=== PATIENT | male | born 1965 | race Two or more races ===

== ENCOUNTER 2016-12-26 09:34 | Day surgery (SDC) | payer BC ==
[2016-12-24 14:59] VITALS: BMI 45.6
[~2016-12-26 09:34] MED LIST: LACTATED RINGERS 1,000 ML IV SCH; LIDOCAINE 1% 20 ML VIAL (10MG/ML) FOR IV START INTRADERMA PRN
[2016-12-26 09:55] VITALS: RESP 18; TEMP 97.7
[2016-12-26] MEDS ORDERED: LACTATED RINGERS 1,000 ML IV ONE (09:55)
[2016-12-26] MEDS ORDERED: PROPOFOL 10 MG/ML 20 ML VIAL IV ONE (10:45)
--- NOTE | 2016-12-26 11:03 | P.PCN ---
Date of Procedure: 12/26/16 Procedure(s) Performed: BRIEF HISTORY: Patient is a 51-year-old pleasant male, scheduled for an elective colonoscopy as a part of screening for colorectal neoplasia. PROCEDURE PERFORMED: Colonoscopy with biopsy PREOPERATIVE DIAGNOSIS: Screening for colon cancer. IV sedation per Anesthesia. PROCEDURE: After informed consent was obtained, the patient, was brought into the endoscopy unit. IV sedation was administered by Anesthesia under continuous monitoring. Digital rectal examination was normal. Initially the Olympus CF- 160 flexible video colonoscope was then inserted in the rectum, gradually advanced into the cecum without any difficulty. Careful examination was performed as the scope was gradually being withdrawn. Ileocecal valve and the appendiceal orifice were visualized and appeared normal. Prep was excellent. Mucosa of the cecum, ascending colon, transverse colon, descending colon, sigmoid colon, and rectum appeared normal. there was a 5 mm polyp in the mid rectum that was removed by biopsy. Retroflexion was performed in the rectum and no lesions were seen. The patient tolerated the procedure well. IMPRESSION: 5 mm rectal polyp status post removal by biopsy. Rest of the colon appeared normal. RECOMMENDATIONS: Findings of this examination were discussed with the patient as well as her family. he was advised to follow with the biopsy results. If the biopsy shows a tubular adenoma, he can have a repeat colonoscopy in 5 years.
[2016-12-26 11:30] VITALS: BP 112/72; PULSE 86
== END 2016-12-26 11:54 | disposition home or self-care (01) ==
LOC: ORWHC2ENDO 09:34
PROVIDERS: ATTEND Internal Medicine Gastroenterology
DX: Z12.11 Encounter for screening for malignant neoplasm of colon (principal); K62.1 Rectal polyp; Z88.0 Allergy status to penicillin
CPT/HCPCS: 45380; 88305; J2704

== ENCOUNTER → 2017-05-20 | Outpatient (CLI) | payer BC ==
--- NOTE | 2017-05-20 23:34 | MR ---
EXAMINATION TYPE: MR knee RT wo con DATE OF EXAM: 05/20/2017 COMPARISON: NONE HISTORY: Rt knee/medial pain x 5 mos, no trauma TECHNIQUE: Multiplanar, multisequence imaging of the right knee is performed without IV contrast. FINDINGS: There is mild knee joint effusion. The anterior and posterior cruciate ligaments appear intact. There is large horizontal tear of the posterior horn medial meniscus extending to the inferior surfac e. There is small horizontal tear of the anterior horn medial meniscus. The lateral meniscus appears intact. The collateral ligaments appear intact. There is mild spurring of the femoral and tibial condyles. Th ere is no evidence of a fracture. IMPRESSION: Mild knee joint effusion. No evidence of ligamentous tear. Small bone bruise that measures 1 cm in th e medial aspect medial tibial condyle. Large horizontal tear of the posterior horn medial meniscus. Small horizontal tear anterior horn medi al meniscus. Hypertrophic osteoarthritic changes.
== END | disposition home or self-care (01) ==
LOC: RADMRIMAIN 17:43
PROVIDERS: ATTEND Orthopaedic Surgery
DX: S83.241A Other tear of medial meniscus, current injury, right knee, initial encounter (principal); M17.11 Unilateral primary osteoarthritis, right knee; S80.11XA Contusion of right lower leg, initial encounter

== ENCOUNTER → 2017-07-01 | Outpatient (CLI) | payer BC ==
[2017-07-01 13:19] LABS: Basophils % (A) 0 %; Eosinophils # (A) 0.2 k/uL (0-0.7); Eosinophils % (A) 3 %; HCT 47.5 % (39.0-53.0); HGB 15.7 gm/dL (13.0-17.5); Lymphocytes # (A) 2.1 k/uL (1.0-4.8); Lymphocytes % (A) 26 %; MCH 28.8 pg (25.0-35.0); MCV 87.4 fL (80.0-100.0); Mean Platelet Volume 6.8; Monocytes # (A) 0.5 k/uL (0-1.0); Monocytes % (A) 6 %; Neutrophils % (A) 61 %; Platelet Count 174 k/uL (150-450); RBC 5.43 m/uL (4.30-5.90); RDW 13.9 % (11.5-15.5); WBC 8.2 k/uL (3.8-10.6)
[2017-07-01 13:27] LABS: Potassium 4.8 mmol/L (3.5-5.1)
== END | disposition home or self-care (01) ==
LOC: LABPAT 12:35
PROVIDERS: ATTEND Orthopaedic Surgery
DX: Z01.818 Encounter for other preprocedural examination (principal); M23.91 Unspecified internal derangement of right knee
CPT/HCPCS: 36415; 80051; 85025; 93005

== ENCOUNTER 2017-07-04 06:06 | Day surgery (SDC) | payer BC ==
[2017-07-02 11:55] VITALS: BMI 45.6
--- NOTE | 2017-07-03 16:23 | HP ---
HISTORY AND PHYSICAL DATE OF SURGERY: 07/04/2017 Luis Carlos Ospina is a 52-year-old patient seen with progressive right knee pain. We discussed treatment options. He elected to proceed with arthroscopy. Consent regarding the procedure was obtained. PAST MEDICAL HISTORY: Noncontributory. PAST SURGICAL HISTORY: Noncontributory. DAILY MEDICATIONS: Ibuprofen as needed. ALLERGIES: AMOXICILLIN. SOCIAL HISTORY: Patient denies current tobacco use. PHYSICAL EVALUATION OF THE RIGHT KNEE: Range of motion is 0 to 120 degrees. There is a mild effusion present. Tenderness along the medial joint line. Positive medial Nanette's. Ligaments are stable. Hip rotation is without pain. Distal neurovascular exam is intact. RIGHT KNEE RADIOGRAPHS: Right knee radiographs revealed mild osteoarthritis. MRI of the right knee revealed a medial meniscal tear as well as a joint effusion. IMPRESSION: Internal derangement, right knee, with medial meniscal tear. PLAN: Right knee arthroscopy with partial meniscectomy and debridement. MMODL / IJN: [id number] /
[~2017-07-04 06:06] MED LIST changes: +DEXAMETHASONE SOD PHOSPHATE 10 MG/ML 1 ML VIAL IV ONE; +MIDAZOLAM 2 MG/2 ML VIAL IV PRN; +MORPHINE SULFATE 4 MG/0.8 ML SYRINGE (INJ) IV PRN; +ONDANSETRON ODT 4 MG TAB PO ONE; +SCOPOLAMINE 1.5MG/72HR PATCH TRANSDERM ONE
[2017-07-04] MEDS ORDERED: fentaNYL (PF) 50 MCG/ML 2 ML AMP ONE (07:26)
[2017-07-04] MEDS ORDERED: PROPOFOL 10 MG/ML 20 ML VIAL IV ONE (07:26)
[2017-07-04] MEDS ORDERED: SUCCINYLCHOLINE CHLORIDE 100 MG/5 ML SYR IV ONE (07:26)
[2017-07-04] MEDS ORDERED: LIDOCAINE 1% INJ 10MG/ML (20 ML MDV) ONE (07:26)
[2017-07-04] MEDS ORDERED: PHENYLEPHRINE-0.9% NACL SYG 1 MG/10 ML SYRINGE ONE (07:26)
[2017-07-04] MEDS ORDERED: MIDAZOLAM 2 MG/2 ML VIAL ONE (07:26)
[2017-07-04] MEDS ORDERED: BUPIVACAINE (PF) 0.25% 30 ML VIAL SQ ONE (07:47)
--- NOTE | 2017-07-04 08:53 | P.OP ---
Date of Procedure: 07/04/17 Preoperative Diagnosis: Internal derangement right knee Postoperative Diagnosis: 1. Tear medial and lateral meniscus right knee 2. Grade 3/4 chondromalacia medial femoral condyle right knee 3. Grade 1/2 chondromalacia lateral femoral condyle right knee 4. Grade 1 chondromalacia patella right knee 5. Partial ACL tear right knee 6. Reactive synovitis medial, lateral and super patellar compartments right knee Procedure(s) Performed: 1. Arthroscopic partial medial and lateral meniscectomy right knee 2. Arthroscopic chondroplasty medial femoral condyle right knee 3. Arthroscopic microfracture medial femoral condyle right knee 4. Arthroscopic chondroplasty lateral femoral condyle right knee 5. Arthroscopic debridement partial ACL tear right knee 6. Arthroscopic partial synovectomy medial, lateral and suprapatellar compartments right knee Implants: none Anesthesia: SHLOMO, local Surgeon: Kory Gandhi Estimated Blood Loss (ml): 11 Pathology: none sent Condition: stable Disposition: PACU Indications for Procedure: 52-year-old patient seen with progressive right knee pain. After treatment options were discussed, he elected to proceed with arthroscopy. Operative Findings: see description of procedure Description of Procedure: Patient was taken to the operative suite. Patient underwent a general anesthetic by the department of anesthesia. Patient was given preoperative antibiotics. The right lower extremity was placed in a well-padded arthroscopic leg gallardo. The right leg was prepped and draped in the normal sterile orthopedic fashion. A lateral parapatellar and suprapatellar incision was made. Trochars were inserted. Arthroscopy was initiated. Suprapatellar pouch revealed diffuse thick reactive synovitis. The patellofemoral joint appeared to articulate congruently. There was grade 1 chondromalacia with no significant osteochondral tears present. The scope was guided into the medial gutter. No loose bodies or plica were identified. The scope was then guided into the medial compartment. A medial parapatellar incision was made. Trocar inserted followed by probe. There was a complex tear posterior horn medial meniscus extending into the midbody. There were grade 3 and 4 chondromalacia changes of the medial femoral condyle with osteochondral tears present. There were grade 1/2 chondromalacia changes of the tibial plateau. There was reactive synovitis anteriorly. I performed a partial medial meniscectomy down to stable tissue. I performed a chondroplasty of the medial femoral condyle down to stable tissue followed by partial synovectomy. There was an area of exposed bone medial femoral condyle and I proceeded with a microfracture in that area. The residual meniscus was probed and found to be stable. The residual osteochondral surface of the medial femoral condyle and tibial plateau were both stable. Scope and probe were then guided into the intercondylar notch. Cruciates were identified, probed and found to have some partial tearing of the anterior cruciate ligament. I debrided that down to stable tissue. There seemed to be about 50% residual ACL remaining and overall it appeared to offer good stability.. The scope and probe were then guided into lateral compartment. There was a radial tear involving the posterior horn and midbody of the lateral meniscus. There were grade 1/2 chondromalacia changes of the lateral femoral condyle with some small osteochondral tears present. There was some synovitis anteriorly. I performed a partial lateral meniscectomy down to stable tissue. I performed a partial synovectomy. I performed a chondroplasty of the lateral femoral condyle down to stable tissue. The residual meniscus was stable. The residual osteochondral surface was stable. The scope was in guided back into the suprapatellar compartment. I introduced a motorized shaver into the suprapatellar compartment. I debrided some piecemeal fragments of meniscus I encountered. I performed a partial synovectomy. The shaver was removed. I took one more look around the entire knee, no residual debris. Instruments were now removed from the joint. The joint was infiltrated with .25% Marcaine. Steri-Strips were applied to the portal sites. Sterile dressings were applied. The patient was placed into a MADINA hose. No tourniquet was utilized. The patient was awakened, transferred to a bed and taken to recovery stable satisfactory condition.
[2017-07-04 09:01] VITALS: TEMP 97.6
[2017-07-04] MEDS: fentaNYL (PF) 50 MCG/ML 2 ML AMP IVP ONE ×2 (09:01→09:18)
[2017-07-04 09:40] VITALS: RESP 16
[2017-07-04 10:16] VITALS: BP 123/76; PULSE 87
== END 2017-07-04 10:40 | disposition home or self-care (01) ==
LOC: OR 06:06
PROVIDERS: ATTEND Orthopaedic Surgery
DX: S83.241A Other tear of medial meniscus, current injury, right knee, initial encounter (principal); S83.281A Other tear of lateral meniscus, current injury, right knee, initial encounter; S83.511A Sprain of anterior cruciate ligament of right knee, initial encounter; M65.861 Other synovitis and tenosynovitis, right lower leg; X58.XXXA Exposure to other specified factors, initial encounter; M22.41 Chondromalacia patellae, right knee; G47.33 Obstructive sleep apnea (adult) (pediatric); E66.01 Morbid (severe) obesity due to excess calories; Z68.42 Body mass index [BMI] 45.0-49.9, adult; Z88.0 Allergy status to penicillin
CPT/HCPCS: 29880; 29879; J2250; J1100; J0690; J2001; J3010; J2370; J0330; J2704